=== PATIENT | female | born 1985 | race Caucasian/White ===

== ENCOUNTER → 2024-04-15 14:50 | Outpatient (REF) | payer OTHER, SELFPAY | LOC: MRI 3T 14:50 | PROVIDERS: ATTENDING PHYSICIAN Surgery; FAMILY PHYSICIAN Nurse Practitioner Family | DX: K60.3 Anal fistula (principal) | CPT/HCPCS: 72197; A9575 ==

== ENCOUNTER → 2024-05-24 13:45 | Outpatient (REF) | payer OTHER, SELFPAY | LOC: HWRAD 13:45 | PROVIDERS: ATTENDING PHYSICIAN Advanced Practice Midwife; FAMILY PHYSICIAN Nurse Practitioner Family | DX: R19.07 Generalized intra-abdominal and pelvic swelling, mass and lump (principal) | CPT/HCPCS: 76830; 76856 ==

== ENCOUNTER → 2024-07-19 15:47 | Outpatient (REF) | payer OTHER, SELFPAY | LOC: WDC 15:47 | PROVIDERS: ATTENDING PHYSICIAN Nurse Practitioner Family | DX: Z12.31 Encounter for screening mammogram for malignant neoplasm of breast (principal) | CPT/HCPCS: 77063; 77067 ==

== ENCOUNTER → 2025-02-15 09:46 | Outpatient (REF) | payer OTHER, SELFPAY | LOC: HWRAD 09:46 | PROVIDERS: ATTENDING PHYSICIAN Advanced Practice Midwife; FAMILY PHYSICIAN Nurse Practitioner Family | DX: N83.209 Unspecified ovarian cyst, unspecified side (principal) | CPT/HCPCS: 76830; 76856 ==

== ENCOUNTER → 2025-07-20 15:16 | Outpatient (REF) | payer OTHER, SELFPAY | LOC: WDC 15:16 | PROVIDERS: ATTENDING PHYSICIAN Advanced Practice Midwife; FAMILY PHYSICIAN Nurse Practitioner Family | DX: Z12.31 Encounter for screening mammogram for malignant neoplasm of breast (principal) | CPT/HCPCS: 77063; 77067 ==

== ENCOUNTER 2025-07-27 06:37 | Day surgery (SDC) | payer OTHER, SELFPAY | END 2025-07-27 10:09 | disposition home or self-care (01) | LOC: GI 06:37 | PROVIDERS: ATTENDING PHYSICIAN Surgery | DX: R19.4 Change in bowel habit (principal); D12.5 Benign neoplasm of sigmoid colon | CPT/HCPCS: 45385; 88305 ==